=== PATIENT | female | born 1970 | race Caucasian/White ===

== ENCOUNTER 2020-10-14 20:46 | Emergency (ER) | payer OTHER ==
[2020-10-14 21:08] VITALS: BP 134/93; PULSE 89; TEMP 98.8; BMI 31.0
== END 2020-10-14 22:07 | disposition home or self-care (01) ==
LOC: FER 20:46
DX: S96.912A Strain of unspecified muscle and tendon at ankle and foot level, left foot, initial encounter (principal); X50.0XXA Overexertion from strenuous movement or load, initial encounter; W18.42XA Slipping, tripping and stumbling without falling due to stepping into hole or opening, initial encounter
CPT/HCPCS: 73610-TC-LT-FY; 73630-TC-LT; 99283-25